=== PATIENT | female | born 2000 | race Caucasian/White ===

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

== ENCOUNTER 2022-07-22 08:36 | Outpatient (CLI) | payer OTHER ==
--- NOTE | 2022-07-22 10:13 | Ultrasound Report ---
LIMITED ULTRASOUND OF LEFT BREAST: 07/22/2022 CLINICAL: Palpable left breast lump. No prior exams were available for comparison. Ultrasound of the left breast 5-6 o'clock region was performed. Sanches scale images of the real-time examination were reviewed. No significant abnormalities were seen sonographically in the left breast. Specifically, no finding to correspond to the patient's palpable abnormality. IMPRESSION: NEGATIVE There is no sonographic correlate to the patient's palpable abnormality and no evidence of malignancy . Screening mammography beginning at age 40 is recommended. Findings and recommendations were conveyed to the patient at time of exam. This exam was interpreted at Station ID: [id number]. Electronically Signed By: Sharon hong/:07/22/2022 09:34:59 Ultrasound BI-RADS: 1 Negative BI-RADS CATEGORY: (1) - 1 Unspecified - other recall n/a LATERALITY: (B)
== END 2022-07-22 08:37 | disposition home or self-care (01) ==
LOC: DI 08:36
PROVIDERS: ATTEND Physician Assistant
DX: N63.25 Unspecified lump in the left breast, overlapping quadrants (principal)

== ENCOUNTER 2022-08-02 09:42 | Outpatient (CLI) | payer OTHER ==
[2022-08-02 14:34] LABS: BASOPHILS % (AUTO) 0.8 %; EOSINOPHILS # (AUTO) 0.2 10^3/uL (0.0-0.7); HCT - HEMATOCRIT 41.2 % (37.0-47.0); HGB - HEMOGLOBIN 13.9 g/dL (12.0-16.0); LYMPHOCYTES # (AUTO) 1.3 10^3/uL (1.5-3.5); LYMPHOCYTES % (AUTO) 25.2 %; MEAN CORPUSCULAR HGB CONC 33.7 g/dL (32.0-36.0); MEAN CORPUSCULAR VOLUME 91.8 fL (81.0-99.0); MEAN PLATELET VOLUME 10.7 fL (7.9-10.8); MONOCYTES # (AUTO) 0.4 10^3/uL (0.0-1.0); MONOCYTES % (AUTO) 8.3 %; NEUTROPHILS # (AUTO) 3.2 10^3/uL (1.5-6.6); NEUTROPHILS % (AUTO) 62.3 %; PLT - PLATELET COUNT 248 10^3/uL (130-450); RED BLOOD COUNT 4.49 10^6/uL (4.20-5.40); RED CELL DISTRIBUTION WIDTH 12.5 % (12.0-15.0); WHITE BLOOD COUNT 5.1 x10^3/uL (4.8-10.8)
[2022-08-02 15:15] LABS: ALBUMIN 3.9 g/dL (3.2-5.5); ALBUMIN/GLOBULIN RATIO 1.3 (1.0-2.2); BILIRUBIN,TOTAL 0.7 mg/dL (0.2-1.0); CALCIUM 8.7 mg/dL (8.5-10.3); CREATININE 0.6 mg/dL (0.4-1.0); POTASSIUM 3.9 mmol/L (3.5-5.0); TOTAL PROTEIN 6.9 g/dL (6.7-8.2)
[2022-08-02 15:25] LABS: THYROID STIMULATING HORMONE 1.59 uIU/mL (0.34-5.60)
== END 2022-08-02 09:43 | disposition home or self-care (01) ==
LOC: LAB.S 09:42
PROVIDERS: ATTEND Registered Nurse
DX: Z79.899 Other long term (current) drug therapy (principal); Z13.29 Encounter for screening for other suspected endocrine disorder
CPT/HCPCS: 36415; 80053; 84443; 85025

== ENCOUNTER 2023-03-25 07:42 | Outpatient (CLI) | payer OTHER ==
[2023-03-25 14:32] LABS: ABSOLUTE RETICS # AUTO 0.071 10^6/uL (0.020-0.110); BASOPHILS % (AUTO) 0.8 %; EOSINOPHILS # (AUTO) 0.3 10^3/uL (0.0-0.7); EOSINOPHILS % (AUTO) 5.6 %; HCT - HEMATOCRIT 41.6 % (37.0-47.0); HGB - HEMOGLOBIN 13.5 g/dL (12.0-16.0); LYMPHOCYTES # (AUTO) 1.4 10^3/uL (1.5-3.5); LYMPHOCYTES % (AUTO) 25.6 %; MEAN CORPUSCULAR HEMOGLOBIN 30.3 pg (27.0-31.0); MEAN CORPUSCULAR HGB CONC 32.5 g/dL (32.0-36.0); MEAN CORPUSCULAR VOLUME 93.3 fL (81.0-99.0); MEAN PLATELET VOLUME 10.9 fL (7.9-10.8); MONOCYTES # (AUTO) 0.4 10^3/uL (0.0-1.0); MONOCYTES % (AUTO) 8.3 %; NEUTROPHILS # (AUTO) 3.2 10^3/uL (1.5-6.6); NEUTROPHILS % (AUTO) 59.3 %; PLT - PLATELET COUNT 240 10^3/uL (130-450); RED BLOOD COUNT 4.46 10^6/uL (4.20-5.40); RED CELL DISTRIBUTION WIDTH 12.3 % (12.0-15.0); RETICULOCYTE COUNT % (AUTO) 1.58 % (0.5-2.3); WHITE BLOOD COUNT 5.3 x10^3/uL (4.8-10.8)
== END 2023-03-25 07:43 | disposition home or self-care (01) ==
LOC: LAB.S 07:42
PROVIDERS: ATTEND Registered Nurse
DX: R53.82 Chronic fatigue, unspecified (principal); N92.0 Excessive and frequent menstruation with regular cycle
CPT/HCPCS: 36415; 81599; 82306; 82607; 82728; 82746; 83020; 83540; 84466; 85025; 85045

== ENCOUNTER 2023-05-06 11:19 | Emergency (ER) | payer OTHER ==
[2023-05-06 11:31] VITALS: BP 120/68; O2SAT 98
--- NOTE | 2023-05-06 11:37 | ED Physician Documentation ---
PD HPI ABD PAIN - Stated complaint Stated Complaint: ,ABD PX - Chief complaint Chief Complaint: Abd Pain - History obtained from History obtained from: Patient - Additional information Additional information: She had an IUD placed 3 weeks ago. At the beginning she had a lot of bleeding and has had pain ever since in the pelvis worse last night after sex. She cannot feel the strings but never could. PD PAST MEDICAL HISTORY - Past Medical History Past Medical History: No - Past Surgical History General: Appendectomy - Present Medications Home Medications: Ambulatory Orders Medication Instructions Recorded Confirmed No Known Home Medications 05/06/23 05/06/23 - Allergies Allergies/Adverse Reactions: Allergies Allergy/AdvReac Type Severity Reaction Status Date / Time No Known Drug Allergies Allergy Verified 05/06/23 11:30 - Social History Does the pt smoke?: No Smoking Status: Never smoker Does the pt drink ETOH?: Yes Does the pt have substance abuse?: No - Immunizations Immunizations are current?: Yes PD ED PE NORMAL - Vitals Vital signs reviewed: Yes - General General: Alert and oriented X 3, No acute distress - Neuro Neuro: Alert and oriented X 3, Normal speech - Psych Psych: Normal mood, Normal affect Results - Vitals Vitals: Vital Signs - 24 hr 05/06/23 11:25 Temperature 36.4 C L Heart Rate 87 Respiratory 16 Rate Blood Pressure 120/68 O2 Saturation 98 PD Medical Decision Making - ED course ED course: 22-year-old woman presents with bleeding and pelvic pain since IUD placement. Ultrasound was reassuring with regard to location of the IUD. Subsequently she declined a pelvic exam preferring to follow-up with her market research manager. Departure - Departure Disposition: 01 Home, Self Care Clinical Impression: Pelvic pain in female Condition: Good Record reviewed to determine appropriate education?: Yes Instructions: ED Pelvic Pain [facility] Comments: You were seen today for pelvic pain associated with an IUD. Ultrasound was normal with the IUD apparently in appropriate place. You did decline pelvic examination today, as such recommend following up with your market research manager in [facility] for further evaluation and treatment. Return for new or worsening symptoms. Forms: PCP List
--- NOTE | 2023-05-06 12:46 | Ultrasound Report ---
PROCEDURE: Pelvic w/Doppler Complete INDICATIONS: pelvic pain, ?iud location TECHNIQUE: Transabdominal images were obtained of the pelvis. COMPARISON: 04/16/2018 FINDINGS: Uterus: 8.9 x 3.6 x 5.2 cm. Endometrium measures 4 mm. IUD is seen in the endometrium. Anteverted pos itioning. Ovaries: Nonenlarged ovaries bilaterally. Color and spectral Doppler: flows are documented Other: No pathologic free fluid. IMPRESSION: Unremarkable appearance of the ovaries. IUD is in the endometrium, which is not thickened. Reviewed by: Gelacio No MD on 05/06/2023 12:44 PM PST Approved by: Gelacio No MD on 05/06/2023 12:44 PM PST Station ID: [id number]
== END 2023-05-06 13:09 | disposition home or self-care (01) ==
LOC: ED 11:19
DX: R10.2 Pelvic and perineal pain (principal); Z97.5 Presence of (intrauterine) contraceptive device
CPT/HCPCS: 93975; 99282; 99284

== ENCOUNTER 2024-01-07 08:00 | Outpatient (CLI) | payer OTHER | END 2024-01-07 23:59 | disposition home or self-care (01) | LOC: LAB.S 08:00 | PROVIDERS: ATTEND Physician Assistant Medical | DX: J02.9 Acute pharyngitis, unspecified (principal) | CPT/HCPCS: 87070 ==